=== PATIENT | male | born 2000 | race Caucasian/White ===

== ENCOUNTER 2020-12-11 09:43 | Emergency (ER) | payer SELFPAY ==
--- NOTE | ~2020-12-11 | XR_ITS ---
EXAMINATION: XR chest 2V EXAM DATE: 12/11/2020 10:59 INDICATION: Cough for one week. TECHNIQUE: Frontal and lateral projections of the chest obtained and reviewed. There is no prior shai dy for comparison. FINDINGS: Left midlung zone granuloma. Small amount of right infrahilar airspace disease suspected, nonspecific. Could be small amount of pneumonia or atelectasis. The lungs are otherwise clear. There are no pleural effusions. The cardiomediastinal silhouette is within normal limits. There is no pn eumothorax suspected. The bones and soft tissues are unremarkable. IMPRESSION: Small amount of right infrahilar atelectasis or pneumonia. Reviewed, dictated and finalized at location A.
[2020-12-11 09:54] VITALS: BP 105/83; PULSE 97; RESP 14; TEMP 36.5; O2SAT 98
--- NOTE | 2020-12-11 10:46 | ED.GENADULT ---
HPI - General Adult General Chief complaint: Upper Respiratory Infection Stated complaint: cough,stuffy nose Source: patient Mode of arrival: ambulatory Limitations: no limitations History of Present Illness HPI narrative: Patient presents for evaluation of cough for the last week and a half. He states that cough is nonproductive. He also has a sore throat. He denies any fever, chills, chest pain, nausea, vomiting, body aches, diarrhea. Occasionally he has shortness of breath during episodes of coughing. She had Covid in March of this year. She did not receive Covid vaccination. He indicates that his stepmother currently has symptoms similar to his, and the two of them live in the same residence. He denies cigarette use but does smoke marijuana. He tried taking Excedrin for symptoms. No additional complaints or concerns. Related Data Allergies Allergy/AdvReac Type Severity Reaction Status Date / Time No Known Allergies Allergy Verified 12/11/20 10:01 Review of Systems Review of Systems: CONSTITUTIONAL: Denies fever, chills, or sweats. EYES: Denies visual changes, redness, or discharge. ENT: Reports sore throat. Denies rhinorrhea, congestion,or otalgia. CARDIOVASCULAR: Denies chest pain, palpitations, or edema. RESPIRATORY: Reports nonproductive cough. Reports episodes of shortness of breath GASTROINTESTINAL: Denies abdominal pain, nausea, vomiting, or diarrhea. GENITOURINARY: Denies dysuria or hematuria. SKIN: Denies rash or itching. MUSCULOSKELETAL: Denies back pain, joint pain, or myalgia. NEUROLOGIC: Denies headache, numbness, dizziness, or weakness. PSYCHIATRIC: Denies anxiety or depression. [facility] Past Medical History Medical History (Updated 12/11/20 @ 11:13 by Main Moseley, REBECA, ) No pertinent past medical history Surgical History Surgical History No pertinent past surgical history Family History Family History Father Heart disease Social History Social History (Updated 12/11/20 @ 10:50 by REBECA Solis, ) Smoking status: Never smoker Substance use type: marijuana Living arrangements: with family Gender identity (if verbalized by the patient): Male Spiritual care concerns: No Exam Narrative: GENERAL: Well-appearing, well-nourished, and in no acute distress. HEAD: Normocephalic, atraumatic. EYES: PERRLA and EOMI. ENT: Nares clear, no rhinorrhea or epistaxis. Mucous membranes moist. Oropharynx without tonsillar hypertrophy exudate or other lesions. Bilateral TMs pearly pizano nonbulging NECK: Supple. No adenopathy or masses. No carotid bruits or JVD CHEST: Clear to auscultation. No respiratory distress. No wheezes rales or rhonchi HEART: Regular rate and rhythm. No murmur heard. Normal peripheral pulses. ABDOMEN: Soft, nontender, nondistended, normal active bowel sounds. EXTREMITIES: Normal range of motion. No edema. SKIN: Warm, dry, no rash. NEURO: No focal deficits. Alert and oriented x3. PSYCH: Normal mood and affect. Course Course Emergency Course: This is a 20-year-old male who presented with respiratory symptoms. Strep and COVID were negative. Chest x-ray shows changes consistent with pneumonia. Will treat with high-dose amoxicillin and azithromycin. Saturations are normal and he is in no apparent distress. We will have him follow up outpatient for further evaluation and return for worsening symptoms. Pt in agreement with plan of care. Vital Signs Vital signs: Vital Signs Temperature 36.5 C 12/11/20 09:54 Pulse Rate 97 12/11/20 09:54 Respiratory Rate 14 12/11/20 09:54 Blood Pressure 105/83 12/11/20 09:54 Pulse Oximetry 98 12/11/20 09:54 Temperature 36.5 C 12/11/20 09:54 Pulse Rate 97 12/11/20 09:54 Respiratory Rate 14 12/11/20 09:54 Blood Pressure 105/83 12/11/20 09:54 Pulse Oximetry 98 12/11/20 09:54
== END 2020-12-11 11:29 | disposition home or self-care (01) ==
PROVIDERS: Emergency Provider Nurse Practitioner
DX: J18.9 Pneumonia, unspecified organism (principal); Z20.822 Contact with and (suspected) exposure to COVID-19
CPT/HCPCS: 71046; 87081; 87426; 87880; 99213; C9803; G0463

== ENCOUNTER 2020-12-23 15:54 | Emergency (ER) | payer MEDICAID, SELFPAY ==
--- NOTE | 2020-12-23 15:59 | ED.SKABFB ---
HPI - Skin/Abscess/Foreign Bdy General Chief complaint: Skin/Abscess/Foreign Body Stated complaint: Bee Sting Time Seen by Provider: 12/23/20 15:59 Source: patient and RN notes reviewed History of Present Illness HPI narrative: Patient is a 20-year-old male who presents the urgent care with complaints of a bee sting to the medial right ankle. Patient states that it is swollen and painful. States that it happened 2 days ago and he has been putting Voltaren cream and using Benadryl. Patient denies of any fever, nausea, vomiting. No other acute complaints. No acute distress noted. Patient aware of the plan of care. Some parts of this dictation were generated by voice recognition software and may contain typographical and/or grammatical inaccuracies. Related Data Allergies Allergy/AdvReac Type Severity Reaction Status Date / Time No Known Allergies Allergy Verified 12/23/20 16:03 Review of Systems Review of Systems: CONSTITUTIONAL: Denies fever, chills, or sweats. EYES: Denies visual changes, redness, or discharge. ENT: Denies rhinorrhea, congestion, sore throat, or otalgia. CARDIOVASCULAR: Denies chest pain, palpitations, or edema. RESPIRATORY: Denies cough or dyspnea. GASTROINTESTINAL: Denies abdominal pain, nausea, vomiting, or diarrhea. GENITOURINARY: Denies dysuria or hematuria. SKIN: Reports of redness and swelling due to bee sting MUSCULOSKELETAL: Denies back pain, joint pain, or myalgia. NEUROLOGIC: Denies headache, numbness, or weakness. All other systems reviewed are negative, except as documented in HPI. [facility] Past Medical History Medical History (Updated 12/23/20 @ 16:15 by REBECA Banegas) No pertinent past medical history Surgical History Surgical History No pertinent past surgical history Family History Family History Father Heart disease Social History Social History (Updated 12/11/20 @ 10:50 by REBECA Solis, ) Smoking status: Never smoker Substance use type: marijuana Gender identity (if verbalized by the patient): Male Spiritual care concerns: No Comments At the time of my signature, I reviewed and agree with the nursing past medical, surgical, social, and family history. There is no relevant family history pertinent to the patient complaint. Exam Narrative: GENERAL: This is a well-nourished, well-developed patient, in no apparent distress. HEAD: normocephalic, atraumatic. EYES: PERRL. Sclera clear/white. Vision is grossly intact. EARS: External ears normal NOSE: External nose normal with no obvious nasal discharge, nares without redness, no rhinorrhea. THROAT: Mucous membranes moist NECK: Neck supple CARDIOVASCULAR: Regular rate and rhythm without murmurs, gallops, or rubs. RESPIRATORY: Clear to auscultation. Breath sounds equal bilaterally. No wheezes, rales, or rhonchi. GASTROINTESTINAL: Abdomen soft, non-tender, nondistended. Bowel sounds are active. No hepato-splenomegaly, or palpable masses. No guarding. SKIN: 1 cm circular localized reaction noted to the medial right ankle without signs or symptoms of cellulitis. Warm, intact with no suspicious lesions or rash, good texture and turgor. NEURO: awake, alert, and oriented to person, place and time. There were no obvious focal neurologic abnormalities. EXTREMITIES: No clubbing, cyanosis, or edema. Course Vital Signs Vital signs: Vital Signs Temperature 98.6 F 12/23/20 16:00 Pulse Rate 78 12/23/20 16:00 Respiratory Rate 16 12/23/20 16:00 Blood Pressure 131/77 12/23/20 16:00 Pulse Oximetry 100 12/23/20 16:00 Temperature 98.6 F 12/23/20 16:00 Pulse Rate 78 12/23/20 16:00 Respiratory Rate 16 12/23/20 16:00 Blood Pressure 131/77 12/23/20 16:00 Pulse Oximetry 100 12/23/20 16:00 Reviewed MDM - Skin/Abscess/Foreign Bdy MDM Narrative Medical decision
[2020-12-23 16:00] VITALS: BP 131/77; PULSE 78; RESP 16; TEMP 37; O2SAT 100
== END 2020-12-23 16:20 | disposition home or self-care (01) ==
PROVIDERS: Emergency Provider Nurse Practitioner Family
DX: S90.561A Insect bite (nonvenomous), right ankle, initial encounter (principal); W57.XXXA Bitten or stung by nonvenomous insect and other nonvenomous arthropods, initial encounter
CPT/HCPCS: 99213; G0463

== ENCOUNTER 2021-02-03 12:39 | Emergency (ER) | payer MEDICAID, SELFPAY ==
[2021-02-03 12:47] VITALS: BP 120/67; PULSE 75; RESP 14; TEMP 37.3; O2SAT 100
--- NOTE | 2021-02-03 13:37 | ED.URI ---
HPI - URI/Sore Throat General Chief Complaint: Upper Respiratory Infection Stated Complaint: Sore throat, upset stomach, migrains Time Seen by Provider: 02/03/21 13:28 Source: patient and RN notes reviewed Mode of arrival: ambulatory Limitations: no limitations History of Present Illness HPI Narrative: Patient presents today complaint of a 2 to 3-day history of headache, nausea, sore throat, and nasal congestion. Denies fever or cough. He has been taking Excedrin with relief of his sore throat and headache. He does report some sick contacts recently, but does not know of anything specific. MD elicited complaint: sore throat Related Data Allergies Allergy/AdvReac Type Severity Reaction Status Date / Time No Known Allergies Allergy Verified 12/23/20 16:03 Review of Systems Review of Systems: CONSTITUTIONAL: Denies body aches, fever, chills, or sweats. EYES: Denies visual changes, redness, or discharge. ENT: Denies rhinorrhea, congestion, or otalgia.+ Sore throat, congestion CARDIOVASCULAR: Denies chest pain, palpitations, or edema. RESPIRATORY: Denies cough or dyspnea. GASTROINTESTINAL: Denies abdominal pain, vomiting, or diarrhea.+ Nausea GENITOURINARY: Denies dysuria or hematuria. SKIN: Denies rash, itching, or wounds. MUSCULOSKELETAL: Denies back pain, joint pain, or myalgia. NEUROLOGIC: Denies numbness, tingling, or weakness.+ Headache PSYCH: Denies depression or anxiety. [facility] Past Medical History Medical History (Reviewed 02/03/21 @ 13:38 by Laura Ridley, [facility], ) No pertinent past medical history Surgical History Surgical History (Reviewed 02/03/21 @ 13:38 by Laura Ridley, [facility], ) No pertinent past surgical history Family History Family History (Reviewed 02/03/21 @ 13:38 by Laura Ridley, [facility], ) Father Heart disease Social History Social History (Reviewed 02/03/21 @ 13:38 by Laura Ridley, [facility], ) Smoking status: Never smoker Substance use type: marijuana Gender identity (if verbalized by the patient): Male Spiritual care concerns: No Comments At time of signature, I have reviewed and agree with nursing past medical, surgical, social and family history unless otherwise noted. Please see nursing chart for further information. There is no relevant family history pertinent to the presenting complaint Exam Narrative: GENERAL: Well-appearing, well-nourished, and in no acute distress. HEAD: Normocephalic, atraumatic. EYES: EOMI. No redness or drainage. Conjunctivae normal. ENT: Mucous membranes pink and moist. Nares clear. No rhinorrhea. TMs normal bilaterally. Throat normal. Uvula midline. NECK: Normal AROM. Supple. No lymphadenopathy. CHEST: No respiratory distress. Clear to auscultation. HEART: Regular rate and rhythm. No murmur appreciated. Normal peripheral pulses. EXTREMITIES: Normal range of motion. No edema. SKIN: Warm, dry, no rash. Capillary refill normal. Normal skin turgor. NEURO: No focal deficits. Alert and oriented x3. Gait steady. PSYCH: Normal affect. No signs of depression or anxiety. Course Vital Signs Vital signs: Vital Signs Temperature 99.1 F 02/03/21 12:47 Pulse Rate 75 02/03/21 12:47 Respiratory Rate 14 02/03/21 12:47 Blood Pressure 120/67 02/03/21 12:47 Pulse Oximetry 100 02/03/21 12:47 Temperature 99.1 F 02/03/21 12:47 Pulse Rate 75 02/03/21 12:47 Respiratory Rate 14 02/03/21 12:47 Blood Pressure 120/67 02/03/21 12:47 Pulse Oximetry 100 02/03/21 12:47 Reviewed MDM - URI/Sore Throat Differential Diagnosis Differential diagnosis: Likely upper respiratory infection, viral infection, pharyngitis and other (COVID-19, influenza, strep throat) Lab Data Attestation: I reviewed the patient's lab results. Labs: Lab Results 02/03/21 Range/Units 13:18 POC SARS CoV-2 Ag Negative (Negative) Influenza A Screen Negative R
== END 2021-02-03 14:02 | disposition home or self-care (01) ==
PROVIDERS: Emergency Provider Nurse Practitioner
DX: B34.9 Viral infection, unspecified (principal); Z20.822 Contact with and (suspected) exposure to COVID-19
CPT/HCPCS: 87081; 87426; 87804; 87880; 99213; C9803; G0463

== ENCOUNTER 2021-05-31 17:54 | Emergency (ER) | payer OTHER, SELFPAY ==
[2021-05-31 18:02] VITALS: BP 147/87; PULSE 118; RESP 20; TEMP 38.1; O2SAT 99
--- NOTE | 2021-05-31 18:40 | ED.URI ---
HPI - URI/Sore Throat General Chief Complaint: Upper Respiratory Infection Stated Complaint: Cough/Back Pain/Nausea Time Seen by Provider: 05/31/21 18:25 Source: patient, RN notes reviewed and old records reviewed Mode of arrival: ambulatory Limitations: no limitations History of Present Illness HPI Narrative: 20 year old male who presents to [facility] care with 3 day history of sore throat, headache, cough, back pain and some nausea with no emesis. Patient report that he has been taking Mucinex,Ibuprofen and Tylenol for his symptoms. Patient reports intermittent fevers, chills and sweats and is febrile at time of triage. Patient has had COVID vaccination and had COVID in 2019, has not had flu shot. Patient reports throat pain to be extremely sore with painful swallowing rates pain 8/10. MD elicited complaint: cough, sore throat and rhinorrhea Onset (ago): day(s) (3) Related Data Allergies Allergy/AdvReac Type Severity Reaction Status Date / Time No Known Allergies Allergy Verified 05/31/21 18:19 Review of Systems Review of Systems: CONSTITUTIONAL: Positive for fevers, chills, or sweats. EYES: Denies visual changes, redness, or discharge. ENT: Positive for rhinorrhea, congestion, sore throat, no otalgia. CARDIOVASCULAR: Denies chest pain, palpitations, or edema. RESPIRATORY: Positive for cough denies dyspnea. GASTROINTESTINAL: Denies abdominal pain,positive for nausea, no vomiting, or diarrhea. GENITOURINARY: Denies dysuria or hematuria. SKIN: Denies rash or itching. MUSCULOSKELETAL: Reports some lower back pain, no joint pain, some myalgia. NEUROLOGIC: positive for headache,no numbness, or weakness. PSYCHIATRIC: Denies anxiety or depression. All systems reviewed & are unremarkable except as noted in HPI and below PMFSH Past Medical History Medical History (Updated 06/01/21 @ 00:06 by Nabila Muñiz NP) COVID-19 No pertinent past medical history Surgical History Surgical History No pertinent past surgical history Family History Family History Father Heart disease Social History Social History (Updated 06/01/21 @ 10:06 by Nabila Muñiz NP) Smoking status: Never smoker Substance use type: marijuana Living arrangements: with family Gender identity (if verbalized by the patient): Male Spiritual care concerns: No Comments At time of signature, agree with nursing past medical, surgical, social and family history. There is no relevant family history pertinent to the presenting complaint Exam Narrative: GENERAL: Ill-appearing, well-nourished, and in no acute distress. HEAD: Normocephalic, atraumatic. EYES: PERRLA and EOMI. ENT: Nares red.clear rhinorrhea no epistaxis. Mucous membranes moist. TM's normal wtith good light reflex, throat red and swollen with tonsils enlarged and red, no lesions or exudates uvula midline and swollen with redness. NECK: Supple with lymphadenopathy CHEST: Clear to auscultation. No respiratory distress.cough nonproductive with SAO2 99% on room air HEART: Regular rate and rhythm. No murmur heard. Normal peripheral pulses. ABDOMEN: Soft, nontender, nondistended, normal active bowel sounds. EXTREMITIES: Normal range of motion. No edema. SKIN: Warm, dry, no rash. NEURO: No focal deficits. Alert and oriented x3. Course Course Level of Care: Express Care Visit Vital Signs Vital signs: Vital Signs Temperature 38.1 C H 05/31/21 18:02 Pulse Rate 118 H 05/31/21 18:02 Respiratory Rate 20 05/31/21 18:02 Blood Pressure 147/87 H 05/31/21 18:02 Pulse Oximetry 99 05/31/21 18:02 Temperature 38.1 C H 05/31/21 18:02 Pulse Rate 118 H 05/31/21 18:02 Respiratory Rate 20 05/31/21 18:02 Blood Pressure 147/87 H 05/31/21 18:02 Pulse Oximetry 99 05/31/21 18:02 MDM - URI/Sore Throat Differential Diagnosis Differential diagnosis: Likely upper respira
== END 2021-05-31 18:52 | disposition home or self-care (01) ==
PROVIDERS: Emergency Provider Registered Nurse
DX: J02.0 Streptococcal pharyngitis (principal); Z86.16 Personal history of COVID-19
CPT/HCPCS: 87880; 99213; G0463